=== PATIENT | male | born 1955 | race Two or more races ===

== ENCOUNTER → 2025-03-01 | Emergency (ER) | payer OTHER ==
[~2025-03-01] VITALS: Ht 172.7 cm; Wt 74.8 kg
[~2025-03-01] MED LIST: ADULT LOW DOSE81 M1 PO; AMLODIPINE-OLM1 EAC1 PO; COZAAR100 MG PO; DICLOFENAC SODI50 MG PO; HIDRALAZINE; KETOROLAC TROMETHAMINE 30 MG VIAL IM ONE; KETOROLAC TROMETHAMINE 30 MG VIAL ONE; TOPROL XL100 M1 PO
== END | disposition home or self-care (01) ==
LOC: ER 12:57
DX: S60.011A Contusion of right thumb without damage to nail, initial encounter (principal); W19.XXXA Unspecified fall, initial encounter; Y93.89 Activity, other specified; Y92.89 Other specified places as the place of occurrence of the external cause; Y99.9 Unspecified external cause status; I10 Essential (primary) hypertension
CPT/HCPCS: 73120; 96372; 99283; J1885